=== PATIENT | female | born 1985 | race Hispanic/Latino ===

== ENCOUNTER 2016-08-05 08:52 | Emergency (ER) | payer OTHER ==
[~2016-08-05] VITALS: Ht 160 cm; Wt 113.4 kg
[~2016-08-05 08:52] MED LIST: CYCLOBENZAPRINE10 M1 PO; FLEXERIL10 MG PO; MOBIC15 M1 PO; NAPROXEN500 MG PO; POLYTRIM EYE DR10 ML OPH; TRAMADOL HCL50 M1 PO
[2016-08-05 08:58] VITALS: BP 138/88
--- NOTE | 2016-08-05 09:23 | ED GENERAL ADULT ---
History of Present Illness General Chief Complaint: Upper Respiratory Sx/Fever Stated Complaint: URI X 2DYS Source: patient Exam Limitations: no limitations Vital Signs & Intake/Output Vital Signs & Intake/Output Vital Signs Date Time Temp Pulse Resp B/P Pulse O2 O2 Flow FiO2 Ox Delivery Rate 08/05 0858 95.9 77 20 138/88 99 Room Air Room Air Allergies Coded Allergies: shellfish derived (HIVES 03/24/16) shrimp (HIVES 03/24/16) Reconcile Medications Cyclobenzaprine HCl 10 MG TABLET 1 TAB PO Q8P spasms Polytrim (Polytrim Eye Drops) 10 ML DROPS 1 GTT OPH Q6 blepharitis Tramadol HCl 50 MG TABLET 1-2 TAB PO Q6P PRN pain Triage Note: PT TO ED WITH C/O NASAL CONGESTION AND SORE THROAT, COUGH, SNEEZING SINCE MONDAY, GOT WORSE LAST NIGHT. Triage Nurses Notes Reviewed? yes : No Patient currently breastfeeds: No HPI: 08/05/16 31-year-old female presents to the emergency room presents to the emergency department complaining of cough, nasal congestion times several days now also a bed sore throat. The onset of the symptoms were abrupt, the duration has been several days, the severity is significant, as her symptoms required her to come to the emergency department for care. She denies any possibility of . She denies any drug allergies. Past History Travel History Traveled to [place] past 21 day No Medical History Any Pertinent Medical History? 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 No Review of Systems Review of Systems Constitutional: Reports: chills. EENTM: Reports: ear pain, throat pain. Respiratory: Reports: cough. Denies: short of breath. Cardiovascular: Denies: chest pain. GI: Denies: abdominal pain. Genitourinary: Reports: no symptoms. Musculoskeletal: Reports: no symptoms. Skin: Denies: rash. Neurological/Psychological: Reports: no symptoms. Hematologic/Endocrine: Reports: no symptoms. Immunologic/Allergic: Reports: no symptoms. Physical Exam Physical Exam General Appearance: well developed/nourished, alert, awake, anxious, mild distress Head: atraumatic Eyes: Bilateral: normal appearance, PERRL, EOMI. Ears, Nose, Throat: pharyngeal erythema Neck: supple, full range of motion Respiratory: normal breath sounds, chest non-tender, no respiratory distress Cardiovascular: regular rate/rhythm Gastrointestinal: non-tender Back: normal range of motion Extremities: normal inspection, normal range of motion, no edema Neurologic/Psych: no motor/sensory deficits, awake, alert, oriented x 3 Skin: intact, normal color, warm/dry Core Measures ACS in differential dx? No CVA/TIA Diagnosis: No Severe Sepsis Present: No Septic Shock Present: No Progress Differential Diagnoses I considered the following diagnoses in my evaluation of the patient: [Strep pharyngitis, retropharyngeal abscess, peritonsillar abscess, mononucleosis, viral upper respiratory tract infection, bronchitis, pneumonia] Plan of Care: Orders Procedure Date/time Status THROAT CULTURE W/QUICK STREP 08/05 0901 Complete Initial ED EKG: none Departure Departure Disposition: HOME OR SELF CARE Condition: Stable Clinical Impression Primary Impression: Strep pharyngitis Referrals: MANDA MCCURDY APRN (PCP/Family) Departure Forms: Customer Survey General Discharge Information Critical Care Note Critical Care Note Critical Care Time: non-applicable
[2016-08-05] MEDS ORDERED: PENICILLIN V P500 M1 PO (09:48)
[2016-08-05] MEDS ORDERED: MOBIC15 M1 PO (09:48)
== END 2016-08-05 09:58 ==
LOC: ERH 08:52
DX: J02.0 Streptococcal pharyngitis (principal)

== ENCOUNTER 2016-11-15 16:12 | Emergency (ER) | payer OTHER ==
[~2016-11-15] VITALS: Ht 167.6 cm; Wt 117.9 kg
[~2016-11-15 16:12] MED LIST changes: +PENICILLIN V P500 M1 PO
--- NOTE | 2016-11-15 17:02 | ED CARDIAC/CP/PALPITATIONS ---
History of Present Illness General Chief Complaint: Chest Pain Stated Complaint: CHEST PAIN WITH BILATERAL HAND PARESTHESIA X4DAYS Source: patient, family, old records Exam Limitations: no limitations Vital Signs & Intake/Output Vital Signs & Intake/Output Vital Signs Date Time Temp Pulse Resp B/P B/P Pulse O2 O2 Flow FiO2 Mean Ox Delivery Rate 11/15 1829 98.0 84 16 110/56 98 Room Air 11/15 1626 96.9 96 12 161/77 100 Room Air Allergies Coded Allergies: shellfish derived (HIVES 03/24/16) shrimp (HIVES 03/24/16) Reconcile Medications Cyclobenzaprine HCl 10 MG TABLET 1 TAB PO Q8P spasms Famotidine (Pepcid) 20 MG TABLET 1 TAB PO BID GERD Meloxicam (Mobic) 15 MG TABLET 1 TAB PO DAILY PRN pain Metoclopramide HCl (Reglan) 10 MG TABLET 1 TAB PO 4 TIMES/DAY PRN GERD 30 minutes before meals and bedtime Penicillin V Potassium 500 MG TABLET 1 TAB PO BID strep throat Polytrim (Polytrim Eye Drops) 10 ML DROPS 1 GTT OPH Q6 blepharitis Tramadol HCl 50 MG TABLET 1-2 TAB PO Q6P PRN pain Tramadol HCl (Ultram) 50 MG TABLET 1-2 TAB PO Q6PRN PRN severe pain Triage Note: PT TO ED FOR 4-5 DAYS OF CHEST PRESSURE, WORSE AT NIGHT, RESOLVES WHEN SHE LIES ON HER R SIDE. DENIES PALPITATIONS SOB, VALDEZ. Triage Nurses Notes Reviewed? yes Onset: Last week Duration: day(s):, changing over time, continues in ED, getting worse Timing: recent history Quality/Severity: moderate, aching Location: substernal Radiation: neck Activities at Onset: rest Prior Chest Pain/Card Workup: no prior cardiac workup Modifying Factors: Worsens With: eating, movement. Nitro Today/Relief: no nitro taken today Aspirin Today: no aspirin today LMP (ages 10-50): unknown : No Patient currently breastfeeds: No HPI: 4 days prior to admission patient complains of substernal chest pain described as achy moderate to severe progressive radiating to her neck associate with nausea and anorexia shortness of breath diaphoresis occurring intermittently. Pain became worse last night and more constant. She denies fever chills vomiting diarrhea abdominal pain dysuria rash headache bleeding previous episodes family history. Past History Travel History Traveled to [place] past 21 day No Medical History Any Pertinent Medical History? 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 No Review of Systems Review of Systems Constitutional: Reports: see HPI, malaise. EENTM: Reports: no symptoms. Respiratory: Reports: see HPI, short of breath. Cardiovascular: Reports: see HPI, chest pain. GI: Reports: see HPI, nausea. Genitourinary: Reports: no symptoms. Musculoskeletal: Reports: no symptoms. Skin: Reports: no symptoms. Neurological/Psychological: Reports: no symptoms. Hematologic/Endocrine: Reports: no symptoms. Immunologic/Allergic: Reports: no symptoms. All Other Systems: Reviewed and Negative Physical Exam Physical Exam General Appearance: well developed/nourished, alert, awake, anxious, moderate distress, obese Head: atraumatic, normal appearance Eyes: Bilateral: normal appearance, PERRL, EOMI. Ears, Nose, Throat: normal pharynx, normal ENT inspection, hearing grossly normal Neck: normal inspection, supple, full range of motion, no midline tenderness Respiratory: normal breath sounds, chest non-tender, no respiratory distress, quiet respiration, lungs clear Cardiovascular: regular rate/rhythm, normal peripheral pulses, norml femoral pulses equa Peripheral Pulses: 4+ carotid (R), 4+ carotid (L) Gastrointestinal: normal bowel sounds, soft, non-tender, no organomegaly Back: normal inspection, normal range of motion, no vertebral tenderness Extremities: normal inspection, normal capillary refill, normal range of motion, no edema, no ligament instability Neurologic/Psych: no motor/sensory deficits, awake, alert, oriented x 3, normal gait, normal mood/affect, food manager II-XII nml as tested Reflexes: 2+: bicep (R), bicep (L). Skin: intact, normal color Lymphatic: no anterior cervical sloane Core Measures ACS in differential dx? Yes ASA ordered for poss ACS? No-ACS ruled out Severe Sepsis Present: Yes Septic Shock Present: Yes Progress Differential Diagnosis: atrial fibrillation, costochondritis, hyperkalemia, musculoskeletal pain, pneumonia Plan of Care: Orders Procedure Date/time Status TROPONIN LEVEL 11/15 1644 Complete HUMAN BETA HCG SCREEN 11/15 1644 Complete COMPREHENSIVE METABOLIC PANEL 11/15 1644 Complete CBC WITHOUT DIFFERENTIAL 11/15 1644 Complete EKG 11/15 161 Active Laboratory Tests 11/15/165: Anion Gap 11, Estimated GFR > 60, BUN/Creatinine Ratio 12.5, Glucose 72, Calcium 9.1, Total Bilirubin 0.5, AST 16, ALT 34, Alkaline Phosphatase 53, Troponin I < 0.01, Total Protein 6.7, Albumin 4.0, Globulin 2.7, Albumin/Globulin Ratio 1.5, Total Beta HCG NEGATIVE, CBC w Diff NO MAN DIFF REQ, RBC 4.19 L, MCV 87.8, MCH 29.8, RDW 14.6 H, MPV 9.8, Gran % 55.1, Lymphocytes % 36.8, Monocytes % 5.4, Eosinophils % 2.3, Basophils % 0.4, Absolute Granulocytes 5.3, Absolute Lymphocytes 3.6 H, Absolute Monocytes 0.5, Absolute Eosinophils 0.2, Absolute Basophils 0, PUBS MCHC 33.9 Initial ED EKG: normal axis, normal intervals, normal p-waves, normal QRS complex, rate (sinus tachycardia) Rhythm Strip: sinus tachycardia Departure Departure Time of Disposition: 1910 Disposition: HOME OR SELF CARE Condition: Stable Clinical Impression Primary Impression: Chest pain syndrome Secondary Impressions: Gastroesophageal reflux disease with esophagitis Referrals: MANDA MCCURDY APRN (PCP/Family) Departure Forms: Customer Survey General Discharge Information Prescriptions: Current Visit Scripts Metoclopramide HCl (Reglan) 1 TAB PO 4 TIMES/DAY PRN GERD #120 TAB 30 minutes before meals and bedtime Famotidine (Pepcid) 1 TAB PO BID #60 TAB Ref 1 Tramadol HCl (Ultram) 1-2 TAB PO Q6PRN PRN severe pain #30 TAB Critical Care Note Critical Care Note Critical Care Time: non-applicable
[2016-11-15 17:31] LABS: ABSOLUTE BASOPHIL COUNT 0 /CUMM (0.0-0.2); ABSOLUTE EOSINOPHIL COUNT 0.2 /CUMM (0.0-0.7); ABSOLUTE GRANULOCYTE CT 5.3 /CUMM (1.4-6.5); ABSOLUTE LYMPH COUNT 3.6 /CUMM (1.2-3.4); ABSOLUTE MONOCYTE COUNT 0.5 /CUMM (0.10-0.60); BASOPHIL % 0.4 % (0.0-2.0); EOSINOPHIL % 2.3 % (0-5); GRANULOCYTE % 55.1 % (42.2-75.2); HEMATOCRIT 36.8 % (37-47); MEAN CORPUSCULAR HGB 29.8 PG (27.0-31.0); MEAN CORPUSCULAR HGB CONC 33.9 G/DL (33.0-37.0); MEAN CORPUSCULAR VOLUME 87.8 FL (81.0-99.0); MEAN PLATELET VOLUME 9.8 FL (7.4-10.4); PLATELET COUNT 256 /CUMM (130-400); RBC DISTRIBUTION WIDTH 14.6 % (11.5-14.5); RED BLOOD CELL CT 4.19 /CUMM (4.20-5.40); WHITE BLOOD CELL COUNT 9.7 /CUMM (4.8-10.8)
[2016-11-15] MEDS ORDERED: REGLAN10 M1 PO (19:13)
[2016-11-15] MEDS ORDERED: ULTRAM50 M1 PO (19:13)
[2016-11-15] MEDS ORDERED: PEPCID20 M1 PO (19:13)
[2016-11-15 19:42] VITALS: BP 116/59
== END 2016-11-15 19:57 ==
LOC: ERH 16:12
PROVIDERS: Emergency Medicine
DX: K21.0 Gastro-esophageal reflux disease with esophagitis (principal); R07.89 Other chest pain
CPT/HCPCS: 93005; 93010; 96374; 96375; 96376; J0131; J2765

== ENCOUNTER 2017-09-26 11:18 | Emergency (ER) | payer OTHER ==
[~2017-09-26] VITALS: Ht 162.6 cm; Wt 111.1 kg
[~2017-09-26 11:18] MED LIST changes: +AUGMENTIN 875-1 EACH PO; +IBUPROFEN600 M1 PO; +IBUPROFEN800 M1 PO; +MUCINEX DM ER1 EACH PO; +NASONEX17 GM NASB; +PEPCID20 M1 PO; +PERCOCET 5-3251 EACH PO; +REGLAN10 M1 PO; +TESSALON PERLE100 M1 PO; +ULTRAM50 M1 PO
[2017-09-26 12:30] VITALS: BP 108/78
--- NOTE | 2017-09-26 12:39 | RADIOLOGY REPORT ---
EXAMINATION: XR TOES, LEFT CLINICAL INFORMATION: Pain. Rule out fracture. COMPARISON: None TECHNIQUE: 3 views of the left toes were obtained. FINDINGS: There is no fracture or dislocation. The alignment is maintained. The joint spaces are maintained. There is no subcutaneous emphysema or radiopaque foreign body. IMPRESSION: No fracture or dislocation of the great toe.
--- NOTE | 2017-09-26 12:51 | ED ANKLE/FOOT INJURY COMPLAINT ---
History of Present Illness General Chief Complaint: Lower Extremity Problems Stated Complaint: PAIN IN LEFT BIG TOE, "FEELS LIKE A NEEDLE" Source: patient Exam Limitations: no limitations Vital Signs & Intake/Output Vital Signs & Intake/Output Vital Signs Date Time Temp Pulse Resp B/P B/P Pulse O2 O2 Flow FiO2 Mean Ox Delivery Rate 09/26 1230 98.8 69 18 108/78 98 Room Air 09/26 1121 97.8 96 18 131/77 98 Room Air Room Air Allergies Coded Allergies: shellfish derived (HIVES 03/24/16) shrimp (HIVES 03/24/16) Reconcile Medications Ibuprofen 800 MG TABLET 1 TAB PO TID PRN PAIN Tramadol HCl 50 MG TABLET 1 TAB PO Q6P PRN PAIN Triage Note: PT TO ED WITH C/O SUDDEN ONSET OF LEFT BIG TOE PAIN STARTED LAST NIGHT, NO INURY OR FALL. Triage Nurses Notes Reviewed? yes Occurred: yesterday Duration: day(s): (1-2), constant, continues in ED, getting worse Timing: single episode today Severity: moderate, severe Severity Numbers: 8 Pain/Injury Location: Left: 1st toe. Method of Injury: unknown No Modifying Factors: none Associated Symptoms: swelling LMP (ages 10-50): unknown : No Patient currently breastfeeds: No HPI: 32-year-old female past medical history of hypertension, GERD, asthma presents for evaluation of pain and swelling in her left great toe. Patient states symptoms started last night and have been persistent. The pain is located diffusely in the toe associated with swelling and continues to get worse. There is no trauma or triggering event. The pain is worse with walking but she has been able to bear weight. She is not taking any medicine for this. No numbness or tingling. She rates pain as a 9 out of 10 described it as stabbing. No ankle pain and knee pain or hip pain. No fever. No redness. Past History Travel History Traveled to [place] past 21 day No Medical History Any Pertinent Medical History? 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 No Review of Systems Review of Systems Constitutional: Reports: no symptoms. EENTM: Reports: no symptoms. Respiratory: Reports: no symptoms. Cardiovascular: Reports: no symptoms. GI: Reports: no symptoms. Genitourinary: Reports: no symptoms. Musculoskeletal: Reports: joint pain, joint swelling, muscle pain. Skin: Reports: no symptoms. Neurological/Psychological: Reports: no symptoms. Hematologic/Endocrine: Reports: no symptoms. Immunologic/Allergic: Reports: no symptoms. All Other Systems: Reviewed and Negative Physical Exam Physical Exam General Appearance: well developed/nourished, no apparent distress, alert, awake Head: atraumatic, normal appearance Eyes: Bilateral: normal appearance, PERRL, EOMI. Ears, Nose, Throat: hearing grossly normal Neck: normal inspection, supple, full range of motion Cardiovascular/Respiratory: no respiratory distress Leg/Knee/Thigh Left: normal range of motion, normal inspection Leg/Knee/Thigh Right: normal range of motion, normal inspection Ankle Left: normal inspection, normal range of motion Ankle Right: normal inspection, normal range of motion Foot Left: normal inspection, normal range of motion, THERE IS MILD DIFFUSE SWELLING OF THE LEFT GREAT TOE. nO ERYTHEMA. tHERE IS TENDERNESS PALPATION IN THE LEFT GREAT TOE AND DORSUM OF THE FOOT. nO ERYTHEMA DEFORMITY FULL RANGE OF MOTION OF THE TOES IS INTACT WITHOUT PAIN. Foot Right: normal inspection, normal range of motion Progress Differential Diagnosis: cellulitis, septic arthritis, gout, fracture, dislocation, sprain, contusion Plan of Care: Orders Procedure Date/time Status Durable Medical Equipment 09/26 1308 Active Patient seen and evaluated. She has pain in the left great toe no known trauma. X-rays are negative. No signs of infection. Rest ice elevation or depression. Patient was given crutches. Podiatry follow-up. Tylenol or Profen tramadol for severe pain. Discussed return precautions. Patient agrees the plan. Diagnostic Imaging: Viewed by Me: Radiology Read. Discussed w/RAD: Radiology Read. Radiology Impression: PATIENT: TEODORA COOMBS PRESENT AGE: 32 PATIENT ACCOUNT NO: [id number] : 85 LOCATION: [facility] ORDERING PHYSICIAN: Brendan RAMIRES SERVICE DATE: 09/26/17 EXAM TYPE: RAD - XRY- TOES, LEFT EXAMINATION: XR TOES, LEFT CLINICAL INFORMATION: Pain. Rule out fracture. COMPARISON: None TECHNIQUE: 3 views of the left toes were obtained. FINDINGS: There is no fracture or dislocation. The alignment is maintained. The joint spaces are maintained. There is no subcutaneous emphysema or radiopaque foreign body. IMPRESSION: No fracture or dislocation of the great toe. DICTATED BY: Tanya Pierson MD DATE/TIME DICTATED:09/26/171228 PATTERN MOLDER: JOZEF DATE/TIME TRANSCRIBED:09/26/171228 CONFIDENTIAL, DO NOT COPY WITHOUT APPROPRIATE AUTHORIZATION. <Electronically signed in Other Vendor System> SIGNED BY: Tanya Pierson MD 09/26/171238 Departure Departure Disposition: HOME OR SELF CARE Condition: Stable Clinical Impression Primary Impression: Pain of left great toe Referrals: Sophia Kan APRN (PCP/Family) Rj Blair DPM Additional Instructions: Rest, avoid excessive weightbearing walking in physical activity. Ibuprofen 800 mg every 8 hours with food as needed for pain. Tramadol for severe pain only this may cause drowsiness. Make a follow-up appointment with YOUr primary care doctor and provided tip fixer as soon as possible. Monitor symptoms return with any concerns. Departure Forms: Customer Survey General Discharge Information Prescriptions: Current Visit Scripts Ibuprofen 1 TAB PO TID PRN PAIN #30 TAB Tramadol HCl 1 TAB PO Q6P PRN PAIN #10 TAB
[2017-09-26] MEDS ORDERED: TRAMADOL HCL50 M1 PO (12:59)
[2017-09-26] MEDS ORDERED: IBUPROFEN800 M1 PO (12:59)
== END 2017-09-26 13:12 ==
LOC: ERH 11:18
DX: M79.675 Pain in left toe(s) (principal)
CPT/HCPCS: 73660-LT